=== PATIENT | male | born 1960 | race Caucasian/White ===

== ENCOUNTER 2018-12-28 19:48 | Emergency (ER) | payer BC ==
[~2018-12-28] VITALS: Ht 162.6 cm; Wt 88.5 kg
[~2018-12-28 19:48] MED LIST: ASPI81TA59 PO; Amoxicillin/Potassium Clav PO; CARV3.12 PO; IBUP600T16 PO; LISI10TA PO; PANT40TA3 PO; SIMV10TA PO
[2018-12-28] MEDS ORDERED: ONDANSETRON PF 4 MG/2 ML VIAL. IV ONE (20:00)
[2018-12-28] MEDS ORDERED: IV NORMAL SALINE 1,000ML 1,000 ML IV SCH (20:00)
[2018-12-28] MEDS ORDERED: MORPHINE SULFATE 4 MG/ML DISP.SYRIN. IV/SQ PRN (20:00)
[2018-12-28] MEDS ORDERED: PIPERACILLIN/TAZOBACTAM 3.375 GM in IV NORMAL SALINE 50ML 50 ML IV ONE (20:00)
--- NOTE | 2018-12-28 20:09 | PHYS DOC ---
Past History Past Medical History: Hypertension Past Surgical History: No Surgical History Smoking: Cigarettes Alcohol Use: Heavy (4 beers per day) Adult General Chief Complaint Chief Complaint: WEAKNESS/GENERALIZED HPI HPI Patient is a 58-year-old male who presents to the emergency department for evaluation. He states he felt well last night but this morning awakened did not feel well, and developed right lower quadrant abdominal pain throughout the day. He has not had any nausea or vomiting, but has had a decreased appetite, and is febrile upon arrival to the emergency department. He reports having 2 episodes of loose stools, without any blood in his stools. He denies any recent travel or antibiotic use. He does feel generally weak. He denies any chest pain or shortness of breath. There are no alleviating or exacerbating factors to his symptoms. Review of Systems Review of Systems Constitutional: Reports generalized fatigue and weakness.[] Eyes: Denies change in visual acuity, redness, or eye pain [] HENT: Denies nasal congestion or sore throat [] Respiratory: Denies cough or shortness of breath [] Cardiovascular: The patient denies any shortness of breath, chest pain, palpitations, or orthopnea[] GI: No additional information not addressed in HPI [] : Denies dysuria or hematuria [] Musculoskeletal: Denies back pain or joint pain [] Integument: Denies rash or skin lesions [] Neurologic: Denies headache, focal weakness or sensory changes [] Endocrine: Denies polyuria or polydipsia [] All other systems were reviewed and found to be within normal limits, except as documented in this note. Allergies Allergies Allergies Coded Allergies Type Severity Reaction Last Updated Verified No Known Allergies Allergy Unknown 01/08/14 No Physical Exam Physical Exam PHYSICAL EXAM: CONSTITUTIONAL: Well developed, well nourished HEAD: normocephalic, atraumatic EENT: PERRL, EOMI. Conjunctivae normal color, sclerae non-icteric; moist mucous membranes. NECK: Supple, non-tender; no meningismus. LUNGS: Lungs CTA, breathing even and unlabored. Normal air movement. HEART: Regular tachycardia, no murmur CHEST: No deformity; non-tender ABDOMEN: The abdomen is soft, normal bowel sounds are present, there is focal tenderness to palpation in the right lower quadrant, less so in the left lower quadrant, without rebound or guarding. The remainder the abdomen is soft and nontender. There are no masses or bruits. EXTREM: Normal ROM; no deformity, no calf tenderness. Normal pulses palpable in all extremities. There is no pedal edema. SKIN: No rash; no diaphoresis NEURO: Alert; normal speech and cognition; CN's grossly intact; strength grossly intact without focal deficit. BACK: No CVA TTP. Current Patient Data Lab Results Laboratory Tests Test 12/28/18 20:04 White Blood Count 40.1 x10^3/uL Red Blood Count 4.73 x10^6/uL Hemoglobin 14.6 g/dL Hematocrit 42.4 % Mean Corpuscular Volume 90 fL Mean Corpuscular Hemoglobin 31 pg Mean Corpuscular Hemoglobin Concent 34 g/dL Red Cell Distribution Width 14.2 % Platelet Count 311 x10^3/uL Neutrophils (%) (Auto) 87 % Lymphocytes (%) (Auto) 5 % Monocytes (%) (Auto) 8 % Eosinophils (%) (Auto) 0 % Basophils (%) (Auto) 0 % Neutrophils # (Auto) 35.0 x10^3uL Lymphocytes # (Auto) 2.0 x10^3/uL Monocytes # (Auto) 3.1 x10^3/uL Eosinophils # (Auto) 0.0 x10^3/uL Basophils # (Auto) 0.1 x10^3/uL Platelet Estimate Pending Sodium Level 129 mmol/L Potassium Level 2.9 mmol/L Chloride Level 89 mmol/L Carbon Dioxide Level 27 mmol/L Anion Gap 13 Blood Urea Nitrogen 51 mg/dL Creatinine 2.0 mg/dL Estimated GFR (Cockcroft-Gault) 34.5 BUN/Creatinine Ratio 26 Glucose Level 108 mg/dL Lactic Acid Level 2.4 mmol/L Calcium Level 8.9 mg/dL Magnesium Level 1.8 mg/dL Total Bilirubin 1.1 mg/dL Aspartate Amino Transf (AST/SGOT) 56 U/L Alanine Aminotransferase (ALT/SGPT) 77 U/L Alkaline Phosphatase 99 U/L Troponin I Quantitative < 0.017 ng/mL Total Protein 7.5 g/dL Albumin 3.1 g/dL Albumin/Globulin Ratio 0.7 Lipase 94 U/L Ethyl Alcohol Level < 10 mg/dL Current Medications Medications (Trade) Dose Ordered Sig/Carrie Route PRN Reason Start Time Stop Time Status Last Admin Dose Admin Piperacillin Sod/ Tazobactam Sod 3.375 gm/Sodium Chloride 50 ml @ 100 mls/hr 1X ONCE IV 12/28/18 20:00 12/28/18 20:29 DC 12/28/18 20:18 Morphine Sulfate (Morphine 4mg Syringe) 4 mg PRN Q15MIN PRN IV/SQ PAIN GREATER THAN 3/10 12/28/18 20:00 12/29/18 19:59 12/28/18 20:19 Sodium Chloride 1,000 ml @ 1,000 mls/hr Q1H IV 12/28/18 20:00 12/28/18 20:59 DC 12/28/18 20:18 Ondansetron HCl (Zofran) 4 mg 1X ONCE IV 12/28/18 20:00 12/28/18 20:06 DC 12/28/18 20:18 Acetaminophen (Tylenol) 1,000 mg 1X ONCE PO 12/28/18 20:15 12/28/18 20:16 DC 12/28/18 20:18 Iohexol (Omnipaque 300 Mg/ml) 75 ml 1X ONCE IV 12/28/18 20:15 12/28/18 20:16 DC Sodium Chloride 50 ml @ As Directed STK-MED ONCE .ROUTE 12/28/18 20:10 12/28/18 20:11 DC Piperacillin Sod/ Tazobactam Sod (Zosyn) 3.375 gm STK-MED ONCE IV 12/28/18 20:10 12/28/18 20:11 DC Sodium Chloride 1,000 ml @ 1,000 mls/hr 1X ONCE IV 12/28/18 20:30 12/28/18 21:29 DC 12/28/18 20:30 EKG EKG Sinus tachycardia at a rate of 10 9 bpm, left axis deviation, normal intervals, nonspecific ST/T changes.[] Radiology/Procedures Radiology/Procedures [PROCEDURE: CT ABD PELV W/ IV CONTRST ONLY Examination: CT ABD PELV W/ IV CONTRST ONLY History: Gave omni 300 75ml iv - tolerated well
RLQ pain and tenderness
no other hx besides heart disease - afib Comparison/Correlation: None Findings: Axial images of the abdomen and pelvis were obtained following IV contrast. Sagittal and coronal reformatted images were provided. Linear discoid atelectasis the right lung base noted. Liver, spleen, pancreas, and adrenal glands are normal. A few calculi are present within the gallbladder neck region. No pericholecystic fluid or biliary dilatation. Pancreas and adrenal glands are normal. Kidneys are unremarkable. Marked circumferential thickening of the appendix is noted with significant surrounding inflammatory findings. Very minimal, punctate extraluminal gas about the appendix is noted. Appendicoliths within the appendix are notable. Left upper pelvic sidewall fluid collection measuring 5.5 cm anteroposteriorly by 2.4 cm transverse by 3.7 cm longitudinal is noted. Urinary bladder is unremarkable. Left inguinal hernia containing distal sigmoid colon is present. Entire extent of this process is not included. No obstruction. No bowel wall thickening involving the visualized sigmoid colon. Severe disc space narrowing is evident involving the lumbar spine from L2 to L5. Impression: Marked acute appendicitis. Loculated fluid collection is noted along the right upper pelvic sidewall in close proximity to the appendix. Intramural gas of the appendix is suspected raising question of ischemia of the wall of the appendix. Appendicoliths. No definite or significant extraluminal gas. Large left inguinal hernia containing much of the sigmoid colon. No bowel obstruction. PQRS Compliance Statement: One or more of the following individualized dose reduction techniques were utilized for this examination: 1. Automated exposure control 2. Adjustment of the mA and/or kV according to patient size 3. Use of iterative reconstruction technique ] Course & Med Decision Making Course & Med Decision Making Pertinent Labs and Imaging studies reviewed. (See chart for details) []9:40 PM: The patient's condition remained stable. His tachycardia improved with IV hydration. I discussed the case with Dr. Ewing, general surgeon at [facility] who accepted the patient in consultation, and the hospitalist, Dr. Stewart, whom I spoke with as well, accepted the patient to be admitted to his service. I discussed the test results and plan of care with the patient's family and the patient. I do believe that the patient does warrant surgery emergently this evening, and I did discuss this explicitly with the general surgeon. CRITICAL CARE TIME: 50 Minutes, excluding any procedures and care of other patients. Dragon Disclaimer Dragon Disclaimer This electronic medical record was generated, in whole or in part, using a voice recognition dictation system. Departure Departure: Impression: Primary Impression: Sepsis Additional Impressions: Acute renal failure Hypokalemia Acute perforated appendicitis Disposition: [facility] Condition: STABLE Referrals: VAUGHN FAUSTIN MD (PCP) Problem Qualifiers JOE MARTÍNEZ MD Dec 28, 2018 20:09
[2018-12-28] MEDS ORDERED: PIPERACILLIN/TAZOBACTAM 3.375 GM VIAL IV ONE (20:10)
[2018-12-28] MEDS ORDERED: IV NORMAL SALINE 50ML 50 ML ONE (20:10)
[2018-12-28] MEDS ORDERED: ACETAMINOPHEN 500 MG TABLET PO ONE (20:15)
[2018-12-28] MEDS ORDERED: IOHEXOL 300 MG/ML 75 ML VIAL. IV ONE (20:15)
[2018-12-28] MEDS ORDERED: IV NORMAL SALINE 1,000ML 1,000 ML IV ONE ×2 (20:30→21:45)
[2018-12-28 21:02] LABS: BASO # 0.1 x10^3/uL (0.0-0.2); BASO % 0 % (0-3); EOS % 0 % (0-3); HEMATOCRIT 42.4 % (39.0-53.0); HEMOGLOBIN 14.6 g/dL (13.0-17.5); LYMPH % 5 % (24-48); MEAN CORPUSCULAR HEMOGLOBIN 31 pg (25-35); MEAN CORPUSCULAR HGB CONC 34 g/dL (31-37); MEAN CORPUSCULAR VOLUME 90 fL (79-100); MONO # 3.1 x10^3/uL (0.0-1.1); MONO % 8 % (0-9); NEUT % 87 % (31-73); PLATELET COUNT 311 x10^3/uL (140-400); RED BLOOD COUNT 4.73 x10^6/uL (4.30-5.70); RED CELL DISTRIBUTION WIDTH 14.2 % (11.5-14.5)
[2018-12-28 21:04] LABS: GFR 34.5; TOTAL BILIRUBIN 1.1 mg/dL (0.2-1.0); TOTAL PROTEIN 7.5 g/dL (6.4-8.2)
[2018-12-28 21:13] LABS: WHITE BLOOD COUNT 40.1 x10^3/uL (4.0-11.0)
--- NOTE | 2018-12-28 21:16 | RAD ---
Examination: CT ABD PELV W/ IV CONTRST ONLY History: Gave omni 300 75ml iv - tolerated well
RLQ pain and tenderness
no other hx besides heart disease - afib Comparison/Correlation: None Findings: Axial images of the abdomen and pelvis were obtained following IV contrast. Sagittal and coronal reformatted images were provided. Linear discoid atelectasis the right lung base noted. Liver, spleen, pancreas, and adrenal glands are normal. A few calculi are present within the gallbladder neck region. No pericholecystic fluid or biliary dilatation. Pancreas and adrenal glands are normal. Kidneys are unremarkable. Marked circumferential thickening of the appendix is noted with significant surrounding inflammatory findings. Very minimal, punctate extraluminal gas about the appendix is noted. Appendicoliths within the appendix are notable. Left upper pelvic sidewall fluid collection measuring 5.5 cm anteroposteriorly by 2.4 cm transverse by 3.7 cm longitudinal is noted. Urinary bladder is unremarkable. Left inguinal hernia containing distal sigmoid colon is present. Entire extent of this process is not included. No obstruction. No bowel wall thickening involving the visualized sigmoid colon. Severe disc space narrowing is evident involving the lumbar spine from L2 to L5. Impression: Marked acute appendicitis. Loculated fluid collection is noted along the right upper pelvic sidewall in close proximity to the appendix. Intramural gas of the appendix is suspected raising question of ischemia of the wall of the appendix. Appendicoliths. No definite or significant extraluminal gas. Large left inguinal hernia containing much of the sigmoid colon. No bowel obstruction. PQRS Compliance Statement: One or more of the following individualized dose reduction techniques were utilized for this examination: 1. Automated exposure control 2. Adjustment of the mA and/or kV according to patient size 3. Use of iterative reconstruction technique Electronically signed by: Shlomo Rodriguez MD (12/28/2018 9:13 PM) [facility]
[2018-12-28 21:29] LABS: ALBUMIN 3.1 g/dL (3.4-5.0); ALBUMIN/GLOBULIN RATIO 0.7 (1.0-1.7); CALCIUM 8.9 mg/dL (8.5-10.1); MAGNESIUM 1.8 mg/dL (1.8-2.4)
[2018-12-28 21:35] LABS: POTASSIUM 2.9 mmol/L (3.5-5.1)
[2018-12-28 22:20] VITALS: BP 90/52
[2018-12-28 22:57] LABS: % LYMPHS 5 % (24-48); % SEGS 90 % (35-66)
[2018-12-28 22:58] LABS: % MONOS 5 % (0-10)
[2018-12-28 23:00] LABS: PLT ESTIMATE INCREASED (ADEQUATE); POLYCHROMASIA SLIGHT
[2018-12-28 23:01] LABS: ANISOCYTOSIS SLIGHT; TOXIC GRANULATION SLIGHT
--- NOTE | 2018-12-29 08:06 | EKG ---
[address] [address] Test Date: 2018-12-28 Test Time: 20:29:36 Pat Name: FLAKITO CLEMENS Department: Room: Gender: M [employer]: : 1960 Requested By: JOE MARTÍNEZ Order Number: [id number] Reading MD: Measurements Intervals [place] Rate: 109 P: -29 IN: 120 QRS: -9 QRSD: 82 T: 31 QT: 334 QTc: 451 Interpretive Statements SINUS TACHYCARDIA LEFTWARD AXIS NO SPECIFIC ECG ABNORMALITIES RI6.01 No previous ECG available for comparison
== END 2018-12-28 22:28 | disposition short-term general hospital (02) ==
LOC: ER 19:48
DX: R65.20 Severe sepsis without septic shock (principal); N17.9 Acute kidney failure, unspecified; E87.6 Hypokalemia; K35.32 Acute appendicitis with perforation, localized peritonitis, and gangrene, without abscess; R19.7 Diarrhea, unspecified; I10 Essential (primary) hypertension; F17.210 Nicotine dependence, cigarettes, uncomplicated; F10.20 Alcohol dependence, uncomplicated; Y90.0 Blood alcohol level of less than 20 mg/100 ml
CPT/HCPCS: 36415; 74177; 80053; 83605; 83690; 83735; 84484; 85007; 85025; 87040; 93005; 96365; 96375; 99291; G0480; J2270; J2405; J2543; 96361; J7030

== ENCOUNTER → 2019-03-15 | Outpatient (CLI) | payer BC ==
--- NOTE | 2019-03-16 07:46 | RAD ---
Examination: EXT NON VASC LEFT History: Left groin mass Comparison/Correlation: None Findings: Ultrasound imaging of the left groin region was performed. There is a complex fluid collection at the site of reported palpable abnormality in the region of a scar from hernia surgery. This measures 7.4 cm x 7.4 cm x 5.2 cm. No hernia is identified with Valsalva maneuver. This complex structure is superior to the left testicle and is separate from the scrotal sac. Impression: Complex collection which may represent old hematoma or complex seroma. No findings to suggest inguinal hernia. Electronically signed by: Shlomo Rodriguez MD (03/16/2019 7:43 AM) [facility]
== END | disposition home or self-care (01) ==
LOC: US 08:31
PROVIDERS: ATTEND Surgery
DX: R19.09 Other intra-abdominal and pelvic swelling, mass and lump (principal)
CPT/HCPCS: 76881